=== PATIENT | female | born 1985 | race African-American/Black ===

== ENCOUNTER 2023-07-22 12:55 | Emergency (ER) | payer OTHER, MEDICAID | END 2023-07-22 14:09 | disposition left against medical advice (07) | LOC: ERS 12:55 | DX: Z53.21 Procedure and treatment not carried out due to patient leaving prior to being seen by health care provider (principal) ==

== ENCOUNTER 2025-01-15 15:21 | Emergency (ER) | payer MEDICAID, OTHER | END 2025-01-15 17:01 | disposition home or self-care (01) | LOC: ERS 15:21 | DX: S61.215A Laceration without foreign body of left ring finger without damage to nail, initial encounter (principal); E11.9 Type 2 diabetes mellitus without complications; F17.290 Nicotine dependence, other tobacco product, uncomplicated; W26.8XXA Contact with other sharp object(s), not elsewhere classified, initial encounter; Y93.89 Activity, other specified | CPT/HCPCS: 12001; 99282 ==